=== PATIENT | female | born 1950 | race Caucasian/White ===

== ENCOUNTER 2018-08-23 13:23 | Observation (INO) ==
[2018-08-23 14:46] LABS: Apearance,Urine CLEAR (Clear); Bacteria,Urine Occasional /HPF (Few); Bilirubin,Urine Negative (Negative); Blood, Urine Negative (Negative); Glucose,Urine (UA) Negative (Negative); Hyaline Casts,Urine 15 /LPF (0-3); Ketones,Urine 5 mg/dL (Negative); Mucus,Urine Many /LPF (Occasional); Nitrite,Urine Negative (Negative); Protein,Urine Negative; RBC,Urine 2 /HPF (0-4); Urine Color Yellow (Yellow); Urine Specific Gravity 1.012 (1.001-1.035); Urine Urobilinogen < 2.0 EU/DL (0.2-1.0); WBC,Urine 1 /HPF (0-6)
[2018-08-23] MEDS ORDERED: PANTOPRAZOLE 40 MG VIAL IV STA (14:56)
[2018-08-23 15:15] LABS: Basophils % 0.3 % (0.0-0.8); Eosinophils # 0.1 10*3/uL (0.0-0.87); Eosinophils % 0.6 % (0.00-10.9); Hematocrit 41.2 VOL% (35.7-47.0); Hemoglobin 13.7 GM/DL (12.0-16.0); Immature Granulocytes % 0.3 %; Immature Granulocytes Absolute 0.03 #; Lymphocytes # 1.8 10*3/uL (1.4-4.0); Lymphocytes % 20.6 % (21.3-54.2); Mean Corpuscular HGB Conc 33.3 GM/DL (32-36); Mean Corpuscular Hemoglobin 29 PG (27-34); Mean Corpuscular Volume 87.1 FL (87-102); Mean Platelet Volume 9.5 FL (9.6-12.0); Monocytes # 0.6 10*3/uL (0.11-0.8); Monocytes % 6.8 % (1.7-12.7); Neutrophils # 6.2 10*3/uL (1.4-7.4); Neutrophils % 71.4 % (38.7-73.9); Platelet Count 278 T/CUMM (130-400); Red Blood Count 4.73 MC/CUMM (3.8-5.5); Red Cell Distribution Width 13.9 % (9.3-17.3); White Blood Count 8.6 T/CUMM (4-12)
[2018-08-23 15:49] LABS: Albumin 4.4 G/DL (3.4-5.0); Bilirubin,Total 0.5 MG/DL (0.2-1.0); Potassium 3.3 MMOL/L (3.5-5.1); Total Protein 7.7 G/DL (6.4-8.3)
[2018-08-23] MEDS ORDERED: MORPHINE 4 MG/1 ML VIAL IV STA (16:35)
[2018-08-23] MEDS ORDERED: ONDANSETRON 4 MG/2 ML VIAL IV ONE (16:35)
[2018-08-23] MEDS ORDERED: ONDANSETRON 4 MG/2 ML VIAL IV PRN (17:32)
[2018-08-23] MEDS ORDERED: MORPHINE 4 MG/1 ML VIAL IV PRN (18:30)
[2018-08-23] MEDS: SODIUM CHLORIDE 0.9% 1,000 ML IV SCH (19:22)
[2018-08-23] MEDS: SIMVASTATIN 10 MG TABLET PO SCH (22:43)
[2018-08-23] MEDS: PANTOPRAZOLE 40 MG VIAL IV SCH (22:45)
[2018-08-24] MEDS: POTASSIUM CHLORIDE 20 MEQ TABLET PO PRN ×3 (00:55→06:03)
[2018-08-24] MEDS: SODIUM CHLORIDE 0.9% 1,000 ML IV SCH ×3 (03:14→21:16)
[2018-08-24 05:03] LABS: Basophils % 0.3 % (0.0-0.8); Eosinophils # 0.1 10*3/uL (0.0-0.87); Eosinophils % 1.1 % (0.00-10.9); Hematocrit 35.4 VOL% (35.7-47.0); Immature Granulocytes % 0.4 %; Immature Granulocytes Absolute 0.03 #; Lymphocytes # 2.1 10*3/uL (1.4-4.0); Lymphocytes % 29.5 % (21.3-54.2); Mean Corpuscular HGB Conc 32.2 GM/DL (32-36); Mean Corpuscular Hemoglobin 28 PG (27-34); Mean Corpuscular Volume 87.8 FL (87-102); Mean Platelet Volume 9.4 FL (9.6-12.0); Monocytes # 0.6 10*3/uL (0.11-0.8); Neutrophils # 4.2 10*3/uL (1.4-7.4); Neutrophils % 59.7 % (38.7-73.9); Red Blood Count 4.03 MC/CUMM (3.8-5.5); Red Cell Distribution Width 14.1 % (9.3-17.3)
[2018-08-24 05:05] LABS: Hemoglobin 11.4 GM/DL (12.0-16.0); PT Patient Result 10.9 SECS; Platelet Count 214 T/CUMM (130-400)
[2018-08-24 05:24] LABS: Calcium 8.3 MG/DL (8.5-10.1); Potassium 3.5 MMOL/L (3.5-5.1); Risk Ratio 3.4; Thyroid Stimulating Hormone 2.98 uIU/ml (0.358-3.74); VLDL CHOLESTEROL 13.4 MG/DL
[2018-08-24] MEDS: THYROID 60 MG TABLET PO SCH (07:57)
[2018-08-24] MEDS: LORATADINE 10 MG TABLET PO SCH (08:48)
[2018-08-24] MEDS: PANTOPRAZOLE 40 MG VIAL IV SCH ×2 (09:47→21:17)
[2018-08-24] MEDS: SIMVASTATIN 10 MG TABLET PO SCH (21:17)
[2018-08-24] MEDS: FLUTICASONE 50 MCG NASAL SPRAY 16 GM BOTTLE BOTH NARES SCH (21:19)
[2018-08-25 05:14] LABS: Basophils % 0.3 % (0.0-0.8); Eosinophils # 0.1 10*3/uL (0.0-0.87); Eosinophils % 1.1 % (0.00-10.9); Hematocrit 36.6 VOL% (35.7-47.0); Immature Granulocytes % 0.5 %; Immature Granulocytes Absolute 0.03 #; Lymphocytes # 1.9 10*3/uL (1.4-4.0); Lymphocytes % 29.2 % (21.3-54.2); Mean Corpuscular HGB Conc 32.8 GM/DL (32-36); Mean Corpuscular Hemoglobin 28 PG (27-34); Mean Corpuscular Volume 86.7 FL (87-102); Mean Platelet Volume 9.7 FL (9.6-12.0); Monocytes # 0.6 10*3/uL (0.11-0.8); Monocytes % 9.2 % (1.7-12.7); Neutrophils # 3.9 10*3/uL (1.4-7.4); Neutrophils % 59.7 % (38.7-73.9); Platelet Count 226 T/CUMM (130-400); Red Blood Count 4.22 MC/CUMM (3.8-5.5); Red Cell Distribution Width 14.1 % (9.3-17.3); White Blood Count 6.5 T/CUMM (4-12)
[2018-08-25 05:19] LABS: PT Patient Result 10.8 SECS
[2018-08-25 05:38] LABS: Calcium 8.9 MG/DL (8.5-10.1); Osmolality,Calculated 282.8 MOS/KG (273-304); Potassium 3.3 MMOL/L (3.5-5.1)
[2018-08-25] MEDS: SODIUM CHLORIDE 0.9% 1,000 ML IV SCH ×2 (05:42→21:32)
[2018-08-25] MEDS: THYROID 60 MG TABLET PO SCH (07:15)
[2018-08-25] MEDS: LORATADINE 10 MG TABLET PO SCH (08:54)
[2018-08-25] MEDS: PANTOPRAZOLE 40 MG VIAL IV SCH ×2 (08:54→20:36)
[2018-08-25] MEDS: FLUTICASONE 50 MCG NASAL SPRAY 16 GM BOTTLE BOTH NARES SCH ×2 (08:56→20:35)
[2018-08-25] MEDS ORDERED: POLYETHYLENE GLYCOL 3350/ELECTROLYTES 4,000 ML BOTTLE PO ONE (18:24)
[2018-08-25] MEDS: POTASSIUM CHLORIDE 20 MEQ TABLET PO PRN (20:33)
[2018-08-25] MEDS: SIMVASTATIN 10 MG TABLET PO SCH (20:33)
[2018-08-26] MEDS: SODIUM CHLORIDE 0.9% 1,000 ML IV SCH ×3 (00:51→11:54)
[2018-08-26 04:52] LABS: PT Patient Result 10.8 SECS
[2018-08-26] MEDS: THYROID 60 MG TABLET PO SCH (07:30)
[2018-08-26] MEDS: FLUTICASONE 50 MCG NASAL SPRAY 16 GM BOTTLE BOTH NARES SCH (08:35)
[2018-08-26] MEDS: LORATADINE 10 MG TABLET PO SCH (08:35)
[2018-08-26] MEDS: PANTOPRAZOLE 40 MG VIAL IV SCH (08:35)
[2018-08-26] MEDS ORDERED: PROPOFOL 200 MG/20 ML VIAL IV ONE (09:00)
[2018-08-26] MEDS ORDERED: LIDOCAINE 2% 5 ML VIAL ONE (09:00)
[2018-08-26 15:48] VITALS: BP 134/90
== END 2018-08-26 17:05 | disposition home or self-care (01) ==
LOC: N.EDINP 13:23 → N.ED 13:23 → N.4E 19:30
PROVIDERS: ADMIT Internal Medicine; ATTEND Internal Medicine